=== PATIENT | male | born 2000 | race Caucasian/White ===

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

== ENCOUNTER 2020-05-24 15:17 | Emergency (ER) | payer OTHER ==
[~2020-05-24] VITALS: Wt 105.2 kg
[~2020-05-24 15:17] MED LIST changes: +FLONASE ALLERG9.9 ML NAS; +ZITHROMAX250 MG PO
[2020-05-24 15:20] VITALS: BP 139/95
== END 2020-05-24 17:05 | disposition home or self-care (01) ==
LOC: ED 15:17
DX: S63.501A Unspecified sprain of right wrist, initial encounter (principal); Z79.899 Other long term (current) drug therapy; X58.XXXA Exposure to other specified factors, initial encounter; Y93.89 Activity, other specified; Y92.89 Other specified places as the place of occurrence of the external cause; Y99.8 Other external cause status

== ENCOUNTER → 2020-05-26 | Outpatient (CLI) | payer OTHER | END | disposition home or self-care (01) | LOC: COVID19 13:13 | PROVIDERS: ATTEND Internal Medicine | DX: Z20.822 Contact with and (suspected) exposure to COVID-19 (principal) ==

== ENCOUNTER 2021-06-13 12:14 | Emergency (ER) | payer OTHER ==
[2021-06-13 12:28] VITALS: BP 144/66
== END 2021-06-13 14:34 | disposition home or self-care (01) ==
LOC: ED 12:14
DX: H61.22 Impacted cerumen, left ear (principal)

== ENCOUNTER 2022-11-25 09:40 | Emergency (ER) | payer OTHER ==
[~2022-11-25] VITALS: Ht 175.2 cm; Wt 105.2 kg
[2022-11-25 09:52] VITALS: BP 153/90
[2022-11-25] MEDS ORDERED: MELOXICAM15 MG PO (10:01)
[2022-11-25] MEDS ORDERED: AMOX-CLAV 875-1 EACH PO (10:01)
== END 2022-11-25 10:21 | disposition home or self-care (01) ==
LOC: ED 09:40
DX: K02.9 Dental caries, unspecified (principal); K04.7 Periapical abscess without sinus

== ENCOUNTER 2023-11-10 12:26 | Emergency (ER) | payer OTHER ==
[~2023-11-10] VITALS: Wt 99.3 kg
[~2023-11-10 12:26] MED LIST changes: +AMOX-CLAV 875-1 EACH PO; +MELOXICAM15 MG PO
[2023-11-10 12:50] VITALS: BP 148/78
[2023-11-10] MEDS ORDERED: MELOXICAM15 MG PO (13:04)
[2023-11-10] MEDS ORDERED: AMOX-CLAV 875-1 EACH PO (13:05)
[2023-11-10] MEDS ORDERED: Amoxicillin/Clavulanate Pota 875 MG TAB PO ONE (13:05)
[2023-11-10] MEDS ORDERED: NAPROSYN500 MG PO (13:10)
== END 2023-11-10 13:10 | disposition home or self-care (01) ==
LOC: ED 12:26
DX: K04.7 Periapical abscess without sinus (principal); R22.0 Localized swelling, mass and lump, head; F17.290 Nicotine dependence, other tobacco product, uncomplicated